=== PATIENT | male | born 1975 | race Caucasian/White ===

== ENCOUNTER 2021-06-11 12:01 | Emergency (ER) | payer OTHER ==
[~2021-06-11 12:01] MED LIST: PERCOCET 5-3251 EACH PO
[2021-06-11 13:48] LABS: BASOPHIL 0.7 % (0-2); EOSINOPHIL 2.9 % (0-5); HCT 49.8 % (42.0-52.0); HGB 17.2 g/dl (13.2-18.0); LYMPHOCYTE 41.5 % (15-48); MCH 31.6 pg (25.0-31.0); MCHC 34.5 g/dL (32.0-36.0); MCV 91.4 fL (78.0-100.0); MONOCYTE 7.8 % (0-12); MPV 11.7 fL (6.0-9.5); NEUTROPHIL 46.9 % (41-80); NRBC 0; PLT 199 K/uL (150-400); RBC 5.45 M/uL (4.70-6.00); RDW 12.1 % (11.5-14.0); WBC 5.9 K/uL (4.0-10.5)
[2021-06-11 14:23] LABS: ALBUMIN 4.4 g/dL (3.4-5.0); BILIRUBIN - TOTAL 1.5 mg/dL (0.2-1.0); BUN/CREAT RATIO (CALC) 13.9 RATIO; CREATININE 0.79 mg/dL (0.67-1.17); GLOBULIN (CALCULATION) 3.6 g/dL
[2021-06-11 15:58] LABS: CORONAVIRUS 2019 SARS-COV-2 NEGATIVE (NEGATIVE); INFLUENZA A NAA NEGATIVE (NEGATIVE)
[2021-06-11] MEDS ORDERED: ANTIVERT25 MG PO (16:18)
[2021-06-11] MEDS ORDERED: DIAZEPAM 5MG TAB5 MG PO (16:20)
== END 2021-06-11 16:21 | disposition home or self-care (01) ==
LOC: FER 12:01
PROVIDERS: Physician Assistant
DX: H81.399 Other peripheral vertigo, unspecified ear (principal); Z20.822 Contact with and (suspected) exposure to COVID-19
CPT/HCPCS: 36415; 70450; 71046; 80053; 84484; 85025; 93005; U0002